=== PATIENT | female | born 1930 | race Asian ===

== ENCOUNTER 2016-10-17 09:37 | Inpatient (IN) | payer OTHER ==
[2016-10-17] VITALS (7 sets, daily range): BP systolic 116–133; BP diastolic 53–79
[~2016-10-17] VITALS: Ht 154.9 cm; Wt 57.2 kg
--- NOTE | 2016-10-17 09:39 | Emergency Room Report ---
History of Present Illness General Chief Complaint: Gastrointestinal Bleed Source: Patient, Family Member, EMS Present Illness HPI The patient started vomiting up dark material this morning. She also appeared pale at that time and weak. She's never done this before. She's had a normal bowel movement earlier today. It was not melanotic. She denies any abdominal complaints. She drank some herbal tea last night. She did not take any nonsteroidals. She is on aspirin. Paramedics found her blood sugar is elevated. She is on metformin and glipizide. Adjusting her medications for this recently. No fevers, ADLER, dysuria, rash, joint pain, dizziness, chest pain, dyspnea. Allergies: Coded Allergies: No Known Allergies (Unverified , 10/17/16) Patient History Past Medical History: see triage record Social History: Denies: alcohol use, drug use, smoking Social History Narrative with daughter Reviewed Nursing Documentation: PMH: Agreed, PSxH: Agreed Nursing Documentation-PMH Past Medical History: No History, Except For Hx Hypertension: Yes Hx Diabetes: Yes Review of Systems All Other Systems: negative except mentioned in HPI Physical Exam Vital Signs Date Time Temp Pulse Resp B/P Pulse Ox O2 Delivery O2 Flow Rate FiO2 10/17/16 09:22 97.5 90 14 81/37 96 Room Air Sp02 EP Interpretation: reviewed, normal General Appearance: well appearing, no apparent distress, GCS 15 Head: normocephalic Eyes: bilateral eye conjunctivae pale ENT: moist mucus membranes Neck: supple Respiratory: lungs clear, normal breath sounds Cardiovascular #1: regular rate, rhythm Cardiovascular #2: 2+ radial (R) Gastrointestinal: normal inspection, normal bowel sounds, non tender, no mass, non-distended Rectal: heme negative stool, other - swab from mouth is heme + Musculoskeletal: back normal, gait/station normal, normal range of motion Neurologic: alert - OX2, motor strength/tone normal, sensory intact, cerebellar normal, speech normal Psychiatric: mood/affect normal Skin: warm/dry, pallor Procedures Critical Care Time Critical Care Time Total time: 30 min bedside evaluation and treatment excludes procedures (EKG). Reason for critical care: hypotension, GI bleed, anemia, hyperglycemia and resuscitation Possible complications: hypotension, shock, arrhythmias, metabolic acidosis, end organ damage. Interventions: aggressive hydration, transfusion, repeated accucheck Course: Patient presented with GI bleed. Patient hypotensive which improved after initial fluid resuscitation. Emergent evaluation for GI bleed and other causes of hypotension and w/u of hypotension. Repeated evaluations and discussion of treatment with family and patient (also informed consent for transfusion). Hypotension and elevated lactic acid led to emergent transfusion. BP stabilized. Accucheck improved with fluids, no insulin needed at this time. Consideration of antibiotics - but held as no infectious source found. Consultations: PMD, family, nursing staff, EMS, blood bank, and GI care consultant Performed by: Dr. Martinez Tolerated well - but condition critical. Medical Decision Making Diagnostic Impression: Primary Impression: Gastrointestinal hemorrhage Qualified Codes: K92.0 - Hematemesis Additional Impressions: Hyperglycemia Elevated lactic acid level Hemorrhagic shock ER Course Patient with heme positive material that she vomited. She is hypotensive. Differential is gastritis, peptic ulcer disease, varices amongst others. Also blood sugars elevated. The patient needs to get IV hydration and rapid transfusion. Also labs will be sent including lactate and type and screen. The patient's blood pressures somewhat improved after fluids. A repeat Accu- Chek after boluses preclude glycemic control at the moment. Protonix begun. Discussed transfusions with patient and family. Tolerating blood without problem. Admit RASHAAD. Discussed with Dr. Calero. Requests Dr. Sanford. Discussed with both physicians. Improved but serious. Laboratory Tests Test 10/17/16 09:44 10/17/16 09:59 White Blood Count 11.0 K/UL (4.8-10.8) H Red Blood Count 2.76 M/UL (4.20-5.40) L Hemoglobin 8.9 G/DL (12.0-16.0) L Hematocrit 28.1 % (37.0-47.0) L Mean Corpuscular Volume 102 FL (80-99) H Mean Corpuscular Hemoglobin 32.2 PG (27.0-31.0) H Mean Corpuscular Hemoglobin Concent 31.6 G/DL (32.0-36.0) L Red Cell Distribution Width 12.1 % (11.6-14.8) Platelet Count 226 K/UL (150-450) Mean Platelet Volume 5.9 FL (6.5-10.1) L Neutrophils (%) (Auto) 68.2 % (45.0-75.0) Lymphocytes (%) (Auto) 25.8 % (20.0-45.0) Monocytes (%) (Auto) 4.5 % (1.0-10.0) Eosinophils (%) (Auto) 0.7 % (0.0-3.0) Basophils (%) (Auto) 0.8 % (0.0-2.0) Prothrombin Time 10.4 SEC (9.30-11.50) Prothrombin Time INR 1.0 (0.9-1.1) PTT 20 SEC (23-33) L Sodium Level 137 mEQ/L (135-145) Potassium Level 4.3 mEQ/L (3.4-4.9) Chloride Level 92 mEQ/L (98-107) L Carbon Dioxide Level 26 mEQ/L (20-30) Anion Gap 19 (5-15) H Blood Urea Nitrogen 36 mg/dL (7-23) H Creatinine 1.0 mg/dL (0.5-0.9) H Estimate Glomerular Filtration Rate mL/min (>60) Glucose Level 385 mg/dL (74-106) H Lactic Acid Level 5.90 mmol/L (0.66-2.22) H Calcium Level 8.8 mg/dL (8.6-10.2) Total Bilirubin 0.5 mg/dL (0.0-1.2) Aspartate Amino Transferase (AST) 20 U/L (5-40) Alanine Aminotransferase (ALT) 10 U/L (3-33) Alkaline Phosphatase 42 U/L (35-104) Troponin I < 0.30 ng/mL (<=0.30) Total Protein 5.4 g/dL (6.6-8.7) L Albumin 3.2 g/dL (3.5-5.2) L Globulin 2.2 g/dL Albumin/Globulin Ratio 1.4 (1.0-2.7) Lipase 22 U/L (< 60) Urine Color Yellow Urine Appearance Clear Urine pH 5 (4.5-8.0) Urine Specific [place] 1.015 (1.005-1.035) Urine Protein 2+ (NEGATIVE) H Urine Glucose (UA) 2+ (NEGATIVE) H Urine Ketones 1+ (NEGATIVE) H Urine Occult Blood Negative (NEGATIVE) Urine Nitrite Negative (NEGATIVE) Urine Bilirubin 2+ (NEGATIVE) H Urine Ictotest Negative Urine Urobilinogen Normal MG/DL (0.0-1.0) Urine Leukocyte Esterase 1+ (NEGATIVE) H Urine RBC 0-2 /HPF (0 - 2) Urine WBC 0-2 /HPF (0 - 2) Urine Squamous Epithelial Cells Occasional /LPF Urine Bacteria Occasional /HPF (NONE) EKG Diagnostic Results Rate: normal Rhythm: NSR ST Segments: no acute changes Rhythm Strip Diag. Results EP Interpretation: yes Rhythm: NSR, no PVC's, no ectopy Chest X-Ray Diagnostic Results EP Interpretation: Yes Findings: no consolidation, no effusion, no pneumothorax, no acute cardiopulmonary disease Number of Views: 1 Other X-Ray Diagnostic Results Other X-Ray Diagnostic Results : X-Ray Ordered: abd EP Interpretation: Yes Findings: other - NSBGP, no obstruction, no obvious masses Number of Views: 1 Last Vital Signs Date Time Temp Pulse Resp B/P Pulse Ox O2 Delivery O2 Flow Rate FiO2 10/17/16 09:22 97.5 90 14 81/37 96 Room Air Status: improved Disposition: ADMITTED INPATIENT Condition: Serious Scripts Pantoprazole* (PROTONIX*) 40 Mg Tablet. 40 MG ORAL DAILY, #30 TAB Prov: Roosevelt Calero MD 10/19/16 Mio Martinez M.D. Oct 17, 2016 09:39
[2016-10-17] MEDS ORDERED: Pantoprazole Inj IV ONE (09:45)
[2016-10-17 10:18] LABS: BASOPHILS % (AUTO) 0.8 % (0.0-2.0); EOSINOPHILS % (AUTO) 0.7 % (0.0-3.0); LYMPHOCYTES % (AUTO) 25.8 % (20.0-45.0); MEAN CORPUSCULAR HEMOGLOBIN 32.2 PG (27.0-31.0); MEAN CORPUSCULAR HGB CONC 31.6 G/DL (32.0-36.0); MEAN CORPUSCULAR VOLUME 102 FL (80-99); MEAN PLATELET VOLUME 5.9 FL (6.5-10.1); MONOCYTES % (AUTO) 4.5 % (1.0-10.0); NEUTROPHILS % (AUTO) 68.2 % (45.0-75.0); PLATELET COUNT 226 K/UL (150-450); RED BLOOD COUNT 2.76 M/UL (4.20-5.40); RED CELL DISTRIBUTION WIDTH 12.1 % (11.6-14.8)
[2016-10-17 10:20] LABS: PROTHROMBIN TIME 10.4 SEC (9.30-11.50)
[2016-10-17 10:21] LABS: APPEARANCE,URINE CLEAR; KETONES,URINE 1+ (NEGATIVE); LEUKOCYTE ESTERASE ,URINE 1+ (NEGATIVE); NITRITE,URINE NEGATIVE (NEGATIVE); PH,URINE 5 (4.5-8.0); PROTEIN,URINE 2+ (NEGATIVE); UROBILINOGEN,URINE NORMAL MG/DL (0.0-1.0)
[2016-10-17 10:27] LABS: ALANINE AMINOTRANSFERASE 10 U/L (3-33); ALBUMIN/GLOBULIN RATIO 1.4 (1.0-2.7); ANION GAP 19 (5-15); ASPARTATE AMINO TRANSFERASE 20 U/L (5-40); CALCIUM 8.8 mg/dL (8.6-10.2); CARBON DIOXIDE 26 mEQ/L (20-30); CHLORIDE 92 mEQ/L (98-107); HEMOLYSIS 31; LIPASE 22 U/L (< 60); POTASSIUM 4.3 mEQ/L (3.4-4.9); SODIUM 137 mEQ/L (135-145); TOTAL PROTEIN 5.4 g/dL (6.6-8.7); TROPONIN I < 0.30 ng/mL (<=0.30)
[2016-10-17 10:30] LABS: REFLEX LACTIC ACID YES OR NO YES
[2016-10-17 10:32] LABS: BACTERIA,URINE OCCASIONAL /HPF; ICTOTEST NEGATIVE; RBC,URINE 0-2 /HPF (0 - 2); SQUAMOUS EPITHELIAL CELL,UR OCCASIONAL /LPF (NONE/OCC); WBC,URINE 0-2 /HPF (0 - 2)
[2016-10-17] MEDS ORDERED: METFORMIN HCL1000 M1 ORAL (10:41)
[2016-10-17] MEDS ORDERED: ATORVASTATIN CA40 MG ORAL (10:41)
[2016-10-17] MEDS ORDERED: BENAZEPRIL HCL10 MG ORAL (10:41)
[2016-10-17] MEDS ORDERED: GABAPENTIN100 MG ORAL (10:41)
[2016-10-17] MEDS ORDERED: HYDROCHLOROTHIA25 MG ORAL (10:41)
[2016-10-17] MEDS ORDERED: NORVASC10 MG ORAL (10:41)
[2016-10-17] MEDS ORDERED: GLIPIZIDE5 MG ORAL (10:41)
[2016-10-17] MEDS ORDERED: ASPIR 8181 MG ORAL (10:41)
--- NOTE | 2016-10-17 13:49 | GI Initial Consult Note ---
PattAnya Ivy N.P. 10/17/16 1349: History of Present Illness General Date patient seen: Oct 17, 2016 Reason for Hospitalization: Gastrointestinal Bleed Referring physician: ADDIE GODDARD Reason for Consultation: GI BLEED Present Illness HPI The patient started vomiting up material this morning. She also appeared pale at that time and weak. She never done this before. She's had a normal bowel movement earlier this today it was not melanotic. She denies any abdominal complaints. She drank some herbal tea last night. She did not take any nonsteroidals. She is on aspirin. Paramedics found her blood sugar is elevated. She is on metformin and glipizide. Adjusting her medications for this. GI CONSULT: HPI as noted above. GI consulted for UGIB with coffee ground emesis. Pt seen on floor with daughter at bedside, alert NAD with no active s/ sx of hematemesis or coffee grounds at this time. No general GI complaints noted at this time. Pt p/w with anemia Hgb of 8.9 and hypoalbuminemia. Unknown history of any endoscopic procedures. Home Meds Reported Medications Aspirin* (ASPIR 81*) 81 Mg Tablet.dr, 81 MG ORAL DAILY, TAB 10/17/16 Gabapentin* (GABAPENTIN*) 100 Mg Capsule, 100 MG ORAL PRN, CAP 10/17/16 Benazepril Hcl* (BENAZEPRIL HCL*) 10 Mg Tablet, 10 MG ORAL DAILY, TAB 10/17/16 Glipizide* (GLIPIZIDE*) 5 Mg Tablet, 5 MG ORAL BID, TAB 10/17/16 Atorvastatin Calcium* (ATORVASTATIN CALCIUM*) 40 Mg Tablet, 40 MG ORAL BEDTIME, TAB 10/17/16 Hydrochlorothiazide* (HYDROCHLOROTHIAZIDE*) 25 Mg Tablet, 25 MG ORAL DAILY, TAB 10/17/16 Metformin Hcl* (METFORMIN HCL*) 1,000 Mg Tablet, 1000 MG ORAL BID, TAB 10/17/16 Amlodipine Besylate (Norvasc) 10 Mg Tablet, 10 MG ORAL DAILY, TAB 10/17/16 Med list reviewed/reconciled: Yes Allergies: Coded Allergies: No Known Allergies (Unverified , 10/17/16) Patient History Limited by: medical condition History Provided By: Family Member, Medical Record H Narrative Past Medical History: see triage record Social History: Denies: alcohol use, drug use, smoking Social History Narrative with daughter Reviewed Nursing Documentation: PMH: Agreed, PSxH: Agreed Nursing Documentation-PMH Past Medical History: No History, Except For Hx Hypertension: Yes Hx Diabetes: Yes Pertinent Family History: HTN Social History: Denies: alcohol use, drug use, other, smoking Review of Systems All Other Systems: negative except mentioned in HPI Physical Exam Vital Signs Date Time Temp Pulse Resp B/P Pulse Ox O2 Delivery O2 Flow Rate FiO2 10/17/16 09:22 97.5 90 14 81/37 96 Room Air Sp02 EP Interpretation: reviewed Labs Laboratory Tests Test 10/17/16 09:44 10/17/16 09:59 White Blood Count 11.0 K/UL (4.8-10.8) H Red Blood Count 2.76 M/UL (4.20-5.40) L Hemoglobin 8.9 G/DL (12.0-16.0) L Hematocrit 28.1 % (37.0-47.0) L Mean Corpuscular Volume 102 FL (80-99) H Mean Corpuscular Hemoglobin 32.2 PG (27.0-31.0) H Mean Corpuscular Hemoglobin Concent 31.6 G/DL (32.0-36.0) L Red Cell Distribution Width 12.1 % (11.6-14.8) Platelet Count 226 K/UL (150-450) Mean Platelet Volume 5.9 FL (6.5-10.1) L Neutrophils (%) (Auto) 68.2 % (45.0-75.0) Lymphocytes (%) (Auto) 25.8 % (20.0-45.0) Monocytes (%) (Auto) 4.5 % (1.0-10.0) Eosinophils (%) (Auto) 0.7 % (0.0-3.0) Basophils (%) (Auto) 0.8 % (0.0-2.0) Prothrombin Time 10.4 SEC (9.30-11.50) Prothromb Time International Ratio 1.0 (0.9-1.1) Activated Partial Thromboplast Time 20 SEC (23-33) L Sodium Level 137 mEQ/L (135-145) Potassium Level 4.3 mEQ/L (3.4-4.9) Chloride Level 92 mEQ/L (98-107) L Carbon Dioxide Level 26 mEQ/L (20-30) Anion Gap 19 (5-15) H Blood Urea Nitrogen 36 mg/dL (7-23) H Creatinine 1.0 mg/dL (0.5-0.9) H Estimat Glomerular Filtration Rate mL/min (>60) Glucose Level 385 mg/dL (74-106) H Lactic Acid Level 5.90 mmol/L (0.66-2.22) H Calcium Level 8.8 mg/dL (8.6-10.2) Total Bilirubin 0.5 mg/dL (0.0-1.2) Aspartate Amino Transf (AST/SGOT) 20 U/L (5-40) Alanine Aminotransferase (ALT/SGPT) 10 U/L (3-33) Alkaline Phosphatase 42 U/L (35-104) Troponin I < 0.30 ng/mL (<=0.30) Total Protein 5.4 g/dL (6.6-8.7) L Albumin 3.2 g/dL (3.5-5.2) L Globulin 2.2 g/dL Albumin/Globulin Ratio 1.4 (1.0-2.7) Lipase 22 U/L (< 60) Urine Color Yellow Urine Appearance Clear Urine pH 5 (4.5-8.0) Urine Specific [place] 1.015 (1.005-1.035) Urine Protein 2+ (NEGATIVE) H Urine Glucose (UA) 2+ (NEGATIVE) H Urine Ketones 1+ (NEGATIVE) H Urine Occult Blood Negative (NEGATIVE) Urine Nitrite Negative (NEGATIVE) Urine Bilirubin 2+ (NEGATIVE) H Urine Ictotest Negative Urine Urobilinogen Normal MG/DL (0.0-1.0) Urine Leukocyte Esterase 1+ (NEGATIVE) H Urine RBC 0-2 /HPF (0 - 2) Urine WBC 0-2 /HPF (0 - 2) Urine Squamous Epithelial Cells Occasional /LPF Urine Bacteria Occasional /HPF (NONE) General Appearance: no apparent distress, alert Head: normocephalic EENT: normal ENT inspection Neck: supple Respiratory: normal breath sounds, no respiratory distress Cardiovascular: normal rate, other - hypotension resolved Gastrointestinal: normal inspection, non tender, soft Rectal: deferred Genitourinary: no CVA tenderness Neurologic: alert Psychiatric: normal inspection Skin: no rash, pallor - generalized Lymphatic: normal inspection, no adenopathy Current Medications Current Medications Medications (Trade) Dose Ordered Sig/Nadine Route PRN Reason Start Time Stop Time Status Last Admin Dose Admin Ondansetron HCl 4 mg 4 mg Q6H PRN IVP Nausea & Vomiting 10/17/16 13:45 11/16/16 13:44 UNV Pantoprazole (Protonix) 40 mg EVERY 12 HOURS IVP 10/17/16 21:00 11/16/16 20:59 UNV Sodium Chloride (Sodium Chloride 1000ml bag) 1,000 ml @ 10 mls/hr Q24H ONCE IV 10/17/16 10:31 10/18/16 10:30 10/17/16 10:31 Sodium Chloride (Sodium Chloride 1000ml bag) 1,000 ml @ 75 mls/hr [id number] IV 10/18/16 09:45 11/17/16 09:44 UNV GI: Plan Problems: (1) Anemia (2) Coffee ground emesis (3) Hypoalbuminemia (4) HTN (hypertension) (5) Diabetes mellitus (6) Gastrointestinal hemorrhage Plan pt scheduled for EGD tomorrow. - NPO + IVFs now PPI BID fu KUB decreased IVFs rate, hypotension resolved. anemia work up OB stool uncollected fu labs Discussed with Dr. Vasquez. Thank you for referring this patient, we will follow. NORM VASQUEZ 10/18/16 1217: History of Present Illness General Reason for Hospitalization: Gastrointestinal Bleed Present Illness Home Meds Reported Medications Aspirin* (ASPIR 81*) 81 Mg Tablet., 81 MG ORAL DAILY, TAB 10/17/16 Gabapentin* (GABAPENTIN*) 100 Mg Capsule, 100 MG ORAL PRN, CAP 10/17/16 Benazepril Hcl* (BENAZEPRIL HCL*) 10 Mg Tablet, 10 MG ORAL DAILY, TAB 10/17/16 Glipizide* (GLIPIZIDE*) 5 Mg Tablet, 5 MG ORAL BID, TAB 10/17/16 Atorvastatin Calcium* (ATORVASTATIN CALCIUM*) 40 Mg Tablet, 40 MG ORAL BEDTIME, TAB 10/17/16 Hydrochlorothiazide* (HYDROCHLOROTHIAZIDE*) 25 Mg Tablet, 25 MG ORAL DAILY, TAB 10/17/16 Metformin Hcl* (METFORMIN HCL*) 1,000 Mg Tablet, 1000 MG ORAL BID, TAB 10/17/16 Amlodipine Besylate (Norvasc) 10 Mg Tablet, 10 MG ORAL DAILY, TAB 10/17/16 Allergies: Coded Allergies: No Known Allergies (Unverified , 10/17/16) GI: Plan Plan The patient was seen and examined at bedside and all new and available data was reviewed in the patients chart. I agree with the above findings, impression and plan. (Patient seen earlier today. Signature stamp does not reflect patient encounter time.). -Imani Mehta MDh Biju N.PAnanya Oct 17, 2016 13:49 NORM VASQUEZ Oct 18, 2016 12:17
[2016-10-17] MEDS: NovoLOG Insulin Flexpen SUBQ SCH ×2 (17:51→21:00)
[2016-10-17] MEDS: Pantoprazole Inj IVP SCH (21:28)
[2016-10-18] VITALS (10 sets, daily range): BP systolic 113–152; BP diastolic 51–73
[2016-10-18 05:38] LABS: PROTHROMBIN TIME 10.3 SEC (9.30-11.50)
[2016-10-18 05:49] LABS: ALANINE AMINOTRANSFERASE 9 U/L (3-33); ALBUMIN/GLOBULIN RATIO 1.4 (1.0-2.7); ANION GAP 8 (5-15); ASPARTATE AMINO TRANSFERASE 17 U/L (5-40); BASOPHILS % (AUTO) 0.8 % (0.0-2.0); CALCIUM 8.4 mg/dL (8.6-10.2); CARBON DIOXIDE 28 mEQ/L (20-30); CHLORIDE 108 mEQ/L (98-107); CREATININE 0.8 mg/dL (0.5-0.9); EOSINOPHILS % (AUTO) 1.3 % (0.0-3.0); LYMPHOCYTES % (AUTO) 31.4 % (20.0-45.0); MAGNESIUM 1.6 mg/dL (1.7-2.5); MEAN CORPUSCULAR VOLUME 97 FL (80-99); MEAN PLATELET VOLUME 6.1 FL (6.5-10.1); MONOCYTES % (AUTO) 6.9 % (1.0-10.0); NEUTROPHILS % (AUTO) 59.6 % (45.0-75.0); PHOSPHORUS 2.3 mg/dL (2.5-4.8); PLATELET COUNT 163 K/UL (150-450); POTASSIUM 3.9 mEQ/L (3.4-4.9); RED BLOOD COUNT 2.62 M/UL (4.20-5.40); RED CELL DISTRIBUTION WIDTH 13.3 % (11.6-14.8); SODIUM 144 mEQ/L (135-145); TOTAL PROTEIN 5.2 g/dL (6.6-8.7); WHITE BLOOD COUNT 7.8 K/UL (4.8-10.8)
[2016-10-18 05:53] LABS: HEMOLYSIS 11; IRON 237 ug/dL (37-145); TOTAL IRON BINDING CAPACITY 253 ug/dL (250-400)
[2016-10-18] MEDS: NovoLOG Insulin Flexpen SUBQ SCH ×4 (06:30→21:20)
[2016-10-18] MEDS: Pantoprazole Inj IVP SCH ×2 (08:48→21:13)
--- NOTE | 2016-10-18 09:24 | Pre-Procedure Note/Attestation ---
Pre-Procedure Note/Attestation Complete Prior to Procedure Planned Procedure: not applicable Procedure Narrative: egd Indications for Procedure Pre-Operative Diagnosis: gib Attestation I attest that I discussed the nature of the procedure; its benefits; risks and complications; and alternatives (and the risks and benefits of such alternatives ), prior to the procedure, with the patient (or the patient's legal cash posting representative). I attest that, if there was a reasonable possibility of needing a blood transfusion, the patient (or the patient's legal cash posting representative) was given the [facility] standardized written summary, pursuant to the [employer] [employer] Blood Safety Act ([place] Health and Safety Code # 1645, as amended). I attest that I re-evaluated the patient just prior to the surgery and that there has been no change in the patient's H&P, except as documented below: NORM VASQUEZ Oct 18, 2016 09:24
[2016-10-18] MEDS ORDERED: NS 550ML IV ONE (09:25)
--- NOTE | 2016-10-18 09:44 | Endoscopy Procedure Note ---
Endoscopy Procedure Note Indication for Procedure: gib Procedures Performed: EGD Operative Findings/Diagnosis: gu Specimen: yes Pt Tolerated Procedure Well: Yes Estimated Blood Loss: none Anesthesiologist: christy Anesthesia: MAC Implant(s) used?: No 50 yrs or older w/o bx or poly: Not Applicable 10yrs. F/U not recommended: Not Applicable NORM VASQUEZ Oct 18, 2016 09:44
--- NOTE | 2016-10-18 09:50 | Anethesia Preoperative Eval ---
Anesthesia Pre-op PMH/ROS General Date of Evaluation: Oct 18, 2016 Time of Evaluation: 09:30 Anesthesiologist: christian ASA Score: ASA 3 Mallampati Score Class I : Soft palate, uvula, fauces, pillars visible Class II: Soft palate, uvula, fauces visible Class III: Soft palate, base of uvula visible Class IV: Only hard plate visible Mallampati Classification: Class III Surgeon: luz maria Diagnosis: anemia Surgical Procedure: egd Anesthesia History: none Family History: no anesthesia problems Allergies: Coded Allergies: No Known Allergies (Unverified , 10/17/16) Medications: see eMAR Past Medical History Cardiovascular: Reports: HTN Pulmonary: Denies: COPD, HUNG, asthma, other Gastrointestinal/Genitourinary: Reports: GERD Neurologic/Psychiatric: Denies: CVA, TIA, dementia, depression/anxiety, other Endocrine: Reports: DM HEENT: Denies: [place] (L), [place] (R), cataract (L), cataract (R), glaucoma, other Hematology/Immune: Reports: anemia Musculoskeletal/Integumentary: Denies: DDD, DJD, OA, RA, edema, other Other: obesity PSxH Narrative: none Anesthesia Pre-op Phys. Exam Physician Exam Last Vital Signs Date Time Temp Pulse Resp B/P Pulse Ox O2 Delivery O2 Flow Rate FiO2 10/18/16 08:00 96.3 75 20 113/51 94 Room Air Constitutional: NAD Neurologic: CN 2-12 intact Cardiovascular: RRR Respiratory: CTA Gastrointestinal: S/NT/ND Airway Exam Mallampati Score: Class II MO: full Neck: thick TMD: 1f ROM: full Dentures: no lower, no upper Anesthesia Pre-op A/P Labs Hematology Test 10/18/16 03:45 White Blood Count 7.8 K/UL (4.8-10.8) Red Blood Count 2.62 M/UL (4.20-5.40) L Hemoglobin 8.4 G/DL (12.0-16.0) L Hematocrit 25.5 % (37.0-47.0) L Mean Corpuscular Volume 97 FL (80-99) Mean Corpuscular Hemoglobin 32.0 PG (27.0-31.0) H Mean Corpuscular Hemoglobin Concent 33.0 G/DL (32.0-36.0) Red Cell Distribution Width 13.3 % (11.6-14.8) Platelet Count 163 K/UL (150-450) Mean Platelet Volume 6.1 FL (6.5-10.1) L Neutrophils (%) (Auto) 59.6 % (45.0-75.0) Lymphocytes (%) (Auto) 31.4 % (20.0-45.0) Monocytes (%) (Auto) 6.9 % (1.0-10.0) Eosinophils (%) (Auto) 1.3 % (0.0-3.0) Basophils (%) (Auto) 0.8 % (0.0-2.0) Coagulation Test 10/18/16 03:45 Prothrombin Time 10.3 SEC (9.30-11.50) Prothromb Time International Ratio 1.0 (0.9-1.1) Activated Partial Thromboplast Time 24 SEC (23-33) Chemistry Test 10/17/16 14:15 10/18/16 03:45 Lactic Acid Level 2.10 mmol/L (0.66-2.22) Sodium Level 144 mEQ/L (135-145) Potassium Level 3.9 mEQ/L (3.4-4.9) Chloride Level 108 mEQ/L (98-107) H Carbon Dioxide Level 28 mEQ/L (20-30) Anion Gap 8 (5-15) Blood Urea Nitrogen 31 mg/dL (7-23) H Creatinine 0.8 mg/dL (0.5-0.9) Estimat Glomerular Filtration Rate mL/min (>60) Glucose Level 104 mg/dL (74-106) # Hemoglobin A1c 6.9 % (< 6.0) H Calcium Level 8.4 mg/dL (8.6-10.2) L Phosphorus Level 2.3 mg/dL (2.5-4.8) L Magnesium Level 1.6 mg/dL (1.7-2.5) L Iron Level 237 ug/dL (37-145) H Total Iron Binding Capacity 253 ug/dL (250-400) Percent Iron Saturation 94 % (15-50) H Unsaturated Iron Binding < 16 ug/dL (112-346) L Total Bilirubin 0.7 mg/dL (0.0-1.2) Aspartate Amino Transf (AST/SGOT) 17 U/L (5-40) Alanine Aminotransferase (ALT/SGPT) 9 U/L (3-33) Alkaline Phosphatase 37 U/L (35-104) Total Protein 5.2 g/dL (6.6-8.7) L Albumin 3.1 g/dL (3.5-5.2) L Globulin 2.1 g/dL Albumin/Globulin Ratio 1.4 (1.0-2.7) Vitamin B12 Level 109 pg/mL (211-946) L Studies Pre-op Studies: EKG - sr Risk Assessment & Plan Plan: mac Status Change Before Surgery: No Pre-Antibiotics Drug: none CHRISSY SEE CRNA Oct 18, 2016 09:50
[2016-10-18] MEDS ORDERED: Propofol 10mg/ml 20ml IV ONE (10:00)
[2016-10-18] MEDS ORDERED: Lidocaine 1% MPF 10mg/ml 5ml ONE (10:00)
--- NOTE | 2016-10-18 10:02 | Immediate Post-Op Evaluation ---
Immediate Post-Op Evalulation Immediate Post-Op Evalulation Procedure: egd Date of Evaluation: Oct 18, 2016 Time of Evaluation: 10:01 IV Fluids: 200 Blood Pressure Systolic: 121 Blood Pressure Diastolic: 65 Pulse Rate: 75 Respiratory Rate: 14 O2 Sat by Pulse Oximetry: 100 Temperature (Fahrenheit): 97.4 Patient Status: awake, reacts, patent Hydration Status: adequate Drug: none CHRISSY SEE CRNA Oct 18, 2016 10:02
--- NOTE | 2016-10-18 10:17 | 48 Hour Post Anesthesia Eval ---
Post Anesthesia Evaluation Procedure: egd Date of Evaluation: Oct 18, 2016 Time of Evaluation: 10:16 Blood Pressure Systolic: 122 0: 65 Pulse Rate: 70 O2 Sat by Pulse Oximetry: 99 Airway: patent Nausea: No Vomiting: No Hydration Status: adequate Cardiopulmonary Status: normal Mental Status/LOC: patient returned to baseline Post-Anesthesia Complications: none Follow-up care needed: N/A CHRISSY SEE CRNA Oct 18, 2016 10:17
--- NOTE | 2016-10-18 12:08 | History and Physical Report ---
DATE OF ADMISSION: 10/17/2016 HISTORY OF PRESENT ILLNESS: This is an 86-year-old female, who was brought to the hospital with complaints of hematemesis. She start having hematemesis yesterday morning. She states that she had normal bowel movements, which were not black in color or had any blood. There were no abdominal complaints. The patient takes aspirin at home. She is also a diabetic on metformin and glipizide. The patient was seen overnight by Gastroenterology and this morning is scheduled for upper GI endoscopy. PAST MEDICAL HISTORY: Hypertension, hyperlipidemia, and diabetes mellitus. PAST SURGICAL HISTORY: None reported. MEDICATIONS: Home medications, aspirin, Neurontin, benazepril, glipizide, Lipitor, HCTZ, and amlodipine. ALLERGIES: None. REVIEW OF SYSTEMS: Denies any headaches. There is no melena or hematochezia. No abdominal pain. No vomiting as discussed above. PHYSICAL EXAMINATION: GENERAL: Reveals an 86-year-old female. VITAL SIGNS: Blood pressure is 130/70, heart rate 84, . She is afebrile. HEENT: Unremarkable. CHEST: Shows clear breath sounds bilaterally. HEART: Normal heart sounds. ABDOMEN: Soft. EXTREMITIES: There is no edema. NEUROLOGIC: Nonfocal. LABORATORY DATA: Lab testing shows hemoglobin 8.4 this morning. Remainder of the CBC is normal. Chemistries are notable for phosphorus 2.3, magnesium 1.6. Iron 237. Hemoglobin A1c is 6.9. Creatinine is normal. Coags are normal. Urinalysis negative. Imaging studies none. IMPRESSION: 1. Upper gastrointestinal bleed. 2. Hypertension. 3. Diabetes mellitus. 4. Hyperlipidemia. 5. Anemia. DISCUSSION: Continue NPO with IV fluids. Proton pump inhibitors. Await results of her endoscopy. 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 Roosevelt Calero M.D. DR: Karina JOB#: [id number] CC:
--- NOTE | 2016-10-18 14:08 | Procedure Note ---
DATE OF PROCEDURE: 10/18/2016 PROCEDURE PERFORMED: Upper endoscopy with biopsy. ANESTHESIA: Per Nanci LUTHER. INSTRUMENT: Olympus adult flexible upper endoscope. INDICATION: Upper gastrointestinal bleeding. DESCRIPTION OF PROCEDURE: The procedure, risks, benefits, and possible consequences, including hemorrhage, aspiration, perforation and infection, and alternative treatments, were explained to the patient/legal guardian by Dr. Buddy Sanford and the patient/legal guardian understood and accepted these risks. After informed consent was obtained and the patient was adequately sedated, the Olympus upper endoscope was advanced from the mouth into the duodenum and retroflexion was performed in the stomach. The patient has evidence of shallow ulcer in the antrum of the stomach in the pre-pyloric region at about 9 o'clock position. There was one ulcer lining of the stomach getting ulcerated, so basically one area of spot of the ulcer with some ulcerative inflammation. No active bleeding at this time. No visible vessel. No adherent clot. Biopsy from antrum and body was obtained to rule out H. pylori infection. The rest of the exam was within normal limits. SUMMARY OF FINDINGS: Gastric ulcers. See above for details. RECOMMENDATIONS: Follow up biopsy results. Treat for H. pylori if it is positive. Continue on PPI twice a day. Advanced diet. Possibly discharge tomorrow if the patient is stable. Buddy Sanford M.D. DR: NORBERTO JOB#: [id number] CC: FRANCESCA
--- NOTE | 2016-10-18 15:09 | Cardiology Report ---
APPROVED REPORT EKG Measurement Heart [id number] NM [id number] Normal sinus rhythm Nonspecific ST abnormality Prolonged QT Abnormal ECG
[2016-10-18] MEDS ORDERED: Tubing IV Secondary IV ONE (17:17)
[2016-10-19] VITALS: BP 149/66
[2016-10-19 04:00] VITALS: BP 143/66
[2016-10-19 05:36] LABS: BASOPHILS % (AUTO) 1.1 % (0.0-2.0); EOSINOPHILS % (AUTO) 2.2 % (0.0-3.0); LYMPHOCYTES % (AUTO) 30.5 % (20.0-45.0); MEAN CORPUSCULAR HEMOGLOBIN 33.2 PG (27.0-31.0); MEAN CORPUSCULAR HGB CONC 34.3 G/DL (32.0-36.0); MEAN CORPUSCULAR VOLUME 97 FL (80-99); MEAN PLATELET VOLUME 5.5 FL (6.5-10.1); MONOCYTES % (AUTO) 5.7 % (1.0-10.0); NEUTROPHILS % (AUTO) 60.5 % (45.0-75.0); PLATELET COUNT 144 K/UL (150-450); RED BLOOD COUNT 2.64 M/UL (4.20-5.40); RED CELL DISTRIBUTION WIDTH 12.7 % (11.6-14.8); WHITE BLOOD COUNT 6.4 K/UL (4.8-10.8)
[2016-10-19 05:51] LABS: ANION GAP 11 (5-15); CALCIUM 8.4 mg/dL (8.6-10.2); CARBON DIOXIDE 25 mEQ/L (20-30); CHLORIDE 106 mEQ/L (98-107); CREATININE 0.6 mg/dL (0.5-0.9); HEMOLYSIS 8; POTASSIUM 3.1 mEQ/L (3.4-4.9); SODIUM 142 mEQ/L (135-145)
[2016-10-19] MEDS: NovoLOG Insulin Flexpen SUBQ SCH (06:22)
[2016-10-19 08:00] VITALS: BP 147/72
[2016-10-19] MEDS: Pantoprazole Inj IVP SCH (08:48)
--- NOTE | 2016-10-19 09:33 | Pulmonology Progress Note ---
Assessment/Plan Assessment/Plan IMPRESSION: 1. Upper gastrointestinal bleed. Gastric ulcer on EGD 2. Hypertension. 3. Diabetes mellitus. 4. Hyperlipidemia. 5. Anemia. DISCUSSION: Start PO diet; dc IV fluids. Proton pump inhibitors. DC home today Replace K Subjective Interval Events: Feeling better; starting PO diet Constitutional: Reports: no symptoms HEENT: Repors: no symptoms Respiratory: Reports: no symptoms Cardiovascular: Reports: no symptoms Gastrointestinal/Abdominal: Reports: no symptoms Genitourinary: Reports: no symptoms Allergies: Coded Allergies: No Known Allergies (Unverified , 10/17/16) Objective Last 24 Hour Vital Signs Date Time Temp Pulse Resp B/P Pulse Ox O2 Delivery O2 Flow Rate FiO2 10/19/16 08:00 88 10/19/16 08:00 97.7 86 20 147/72 95 Room Air 10/19/16 04:00 79 10/19/16 04:00 97.8 80 18 143/66 95 Room Air 10/19/16 00:00 97.0 75 18 149/66 94 Bi-pap 10/19/16 00:00 80 10/18/16 20:27 80 10/18/16 19:55 98.2 77 21 152/73 93 Room Air 10/18/16 16:00 73 10/18/16 16:00 99.4 74 22 137/62 94 Room Air 10/18/16 12:00 97.9 79 21 124/57 94 Room Air 10/18/16 10:20 98.0 63 15 138/55 94 Room Air 10/18/16 10:17 70 99 10/18/16 10:05 68 20 139/56 94 Nasal Cannula 2.0 10/18/16 10:02 75 14 100 10/18/16 10:00 72 23 145/66 94 Simple Mask 6.0 10/18/16 09:55 97.9 66 22 122/52 100 Simple Mask 6.0 Intake and Output 10/18/16 10/19/16 19:00 07:00 Intake Total 1020 ml 1300 ml Output Total 800 ml 2550 ml Balance 220 ml -1250 ml Intake Oral 120 ml 625 ml IV Total 900 ml 675 ml Output Urine Total 800 ml 2550 ml # Voids 1 General Appearance: WD/WN HEENT: normocephalic Respiratory/Chest: chest wall non-tender, lungs clear Cardiovascular: normal peripheral pulses, normal rate Laboratory Tests 10/19/16 04:15: White Blood Count 6.4, Red Blood Count 2.64L, Hemoglobin 8.8L, Hematocrit 25.5L , Mean Corpuscular Volume 97, Mean Corpuscular Hemoglobin 33.2H, Mean Corpuscular Hemoglobin Concent 34.3, Red Cell Distribution Width 12.7, Platelet Count 144L, Mean Platelet Volume 5.5L, Neutrophils (%) (Auto) 60.5, Lymphocytes (%) (Auto) 30.5, Monocytes (%) (Auto) 5.7, Eosinophils (%) (Auto) 2.2, Basophils (%) (Auto) 1.1, Sodium Level 142, Potassium Level 3.1L, Chloride Level 106, Carbon Dioxide Level 25, Anion Gap 11, Blood Urea Nitrogen 11, Creatinine 0.6, Estimat Glomerular Filtration Rate , Glucose Level 99, Calcium Level 8.4L, Helicobacter pylori IgG Antibody [Pending] Current Medications Medications (Trade) Dose Ordered Sig/Nadine Route PRN Reason Start Time Stop Time Status Last Admin Dose Admin Dextrose (Dextrose 50%) STAT PRN IV Hypoglycemia 10/17/16 14:15 11/16/16 14:14 Insulin Aspart (NovoLOG) BEFORE MEALS AND HS SUBQ 10/17/16 16:30 11/16/16 16:29 10/18/16 21:20 Ondansetron HCl 4 mg 4 mg Q6H PRN IVP Nausea & Vomiting 10/17/16 13:45 11/16/16 13:44 Pantoprazole (Protonix) 40 mg EVERY 12 HOURS IVP 10/17/16 21:00 11/16/16 20:59 10/19/16 08:48 Sodium Chloride (Sodium Chloride 1000ml bag) 1,000 ml @ 75 mls/hr [id number] IV 10/17/16 14:00 11/16/16 13:59 10/19/16 07:00 Roosevelt Calero MD Oct 19, 2016 09:33
[2016-10-19] MEDS ORDERED: PROTONIX40 MG ORAL (09:39)
[2016-10-19] MEDS ORDERED: KCl 10% 20 mEq/15ml liquid NG ONE (09:45)
--- NOTE | 2016-10-19 11:16 | GI Progress Note ---
Assessment/Plan Problems: (1) Gastrointestinal hemorrhage ICD Codes: K92.2 - Gastrointestinal hemorrhage, unspecified SNOMED: 15436965 Qualifiers: Qualified Codes: K92.0 - Hematemesis (2) Hypoalbuminemia ICD Codes: E88.09 - Other disorders of plasma-protein metabolism, not elsewhere classified SNOMED: 200947459 (3) Anemia ICD Codes: D64.9 - Anemia, unspecified SNOMED: 582456893 (4) Diabetes mellitus ICD Codes: E11.9 - Type 2 diabetes mellitus without complications SNOMED: 36203273 (5) Elevated lactic acid level ICD Codes: E87.2 - Acidosis SNOMED: 4009873 Status: stable Status Narrative Discussed with Dr. Sanford. Assessment/Plan SUMMARY OF FINDINGS: Gastric ulcers. See above for details. ok for DC per GI standpoint monitor H&H, transfuse prn PPI BID adv diet fu biopsy for HP outpatient follow up Subjective Gastrointestinal/Abdominal: Reports: no symptoms Objective Last 24 Hour Vital Signs Date Time Temp Pulse Resp B/P Pulse Ox O2 Delivery O2 Flow Rate FiO2 10/19/16 08:00 88 10/19/16 08:00 97.7 86 20 147/72 95 Room Air 10/19/16 04:00 79 10/19/16 04:00 97.8 80 18 143/66 95 Room Air 10/19/16 00:00 97.0 75 18 149/66 94 Bi-pap 10/19/16 00:00 80 10/18/16 20:27 80 10/18/16 19:55 98.2 77 21 152/73 93 Room Air 10/18/16 16:00 73 10/18/16 16:00 99.4 74 22 137/62 94 Room Air 10/18/16 12:00 97.9 79 21 124/57 94 Room Air Intake and Output 10/18/16 10/19/16 19:00 07:00 Intake Total 1020 ml 1300 ml Output Total 800 ml 2550 ml Balance 220 ml -1250 ml Intake Oral 120 ml 625 ml IV Total 900 ml 675 ml Output Urine Total 800 ml 2550 ml # Voids 1 Laboratory Tests Test 10/19/16 04:15 White Blood Count 6.4 K/UL (4.8-10.8) Red Blood Count 2.64 M/UL (4.20-5.40) L Hemoglobin 8.8 G/DL (12.0-16.0) L Hematocrit 25.5 % (37.0-47.0) L Mean Corpuscular Volume 97 FL (80-99) Mean Corpuscular Hemoglobin 33.2 PG (27.0-31.0) H Mean Corpuscular Hemoglobin Concent 34.3 G/DL (32.0-36.0) Red Cell Distribution Width 12.7 % (11.6-14.8) Platelet Count 144 K/UL (150-450) L Mean Platelet Volume 5.5 FL (6.5-10.1) L Neutrophils (%) (Auto) 60.5 % (45.0-75.0) Lymphocytes (%) (Auto) 30.5 % (20.0-45.0) Monocytes (%) (Auto) 5.7 % (1.0-10.0) Eosinophils (%) (Auto) 2.2 % (0.0-3.0) Basophils (%) (Auto) 1.1 % (0.0-2.0) Sodium Level 142 mEQ/L (135-145) Potassium Level 3.1 mEQ/L (3.4-4.9) L Chloride Level 106 mEQ/L (98-107) Carbon Dioxide Level 25 mEQ/L (20-30) Anion Gap 11 (5-15) Blood Urea Nitrogen 11 mg/dL (7-23) Creatinine 0.6 mg/dL (0.5-0.9) Estimat Glomerular Filtration Rate mL/min (>60) Glucose Level 99 mg/dL (74-106) Calcium Level 8.4 mg/dL (8.6-10.2) L Helicobacter pylori IgG Antibody Pending Height (Feet): 5 Height (Inches): 1.00 Weight (Pounds): 126 General Appearance: no apparent distress, alert Cardiovascular: normal rate Respiratory/Chest: normal breath sounds, no respiratory distress Abdominal Exam: normal bowel sounds, non tender, soft Anya Beltre N.P. Oct 19, 2016 11:16
--- NOTE | 2016-10-20 15:15 | Discharge Summary ---
Discharge Summary Hospital Course Date of Admission Oct 17, 2016 at 10:07 Date of Discharge Oct 19, 2016 at 11:20 Admitting Diagnosis GI BLEED RAJ Everett is a 86 year old female who was admitted on Oct 17, 2016 at 10: 07 for Gi Bleed Hospital Course This is an 86-year-old female, who was brought to the hospital due to complaints of hematemesis. She stated that she had normal bowel movements, which were not black in color or had any blood. There were no abdominal complaints. The patient takes aspirin at home. She is also diabetic on metformin and glipizide. GI was consulted. On 10/18/2016, she underwent upper endoscopy with biopsy by Dr Sanford. Endoscopic findings showed evidence of shallow ulcer in the antrum of the stomach in the pre-pyloric region at about 9 o'clock position. There was one ulcer at lining of the stomach getting ulcerated, so basically one area of the ulcer with some ulcerative inflammation. No active bleeding at this time. No visible vessel. No adherent clot. Biopsy from antrum and body was obtained to rule out H. pylori infection. The rest of the exam was within normal limits. He was continued on PPI twice a day. Diet was eventually advanced. Potassium was repleted. She was eventually discharged home. FINAL DIAGNOSES: 1. Upper gastrointestinal bleed secondary to Gastric ulcer based on EGD 2. Hypertension. 3. Diabetes mellitus. 4. Hyperlipidemia. 5. Anemia. 6. Hypokalemia. I have been assigned to dictate a discharge summary on this account. I was not involved in the patient management. Discharge Discharge Disposition Patient was discharged to Home () Discharge Diagnoses: Roslyn Lima NP Oct 20, 2016 15:15
--- NOTE | 2016-10-22 10:30 | Diagnostic Imaging Report ---
Indication: Chest Pain Comparison: None A single view chest radiograph was obtained. Findings: No definite infiltrate or pulmonary vascular congestion identified. The heart is normal in size. The aorta is mildly enlarged consistent with atherosclerotic vascular disease. The bones are osteopenic. Impression: No acute disease
--- NOTE | 2016-10-30 23:24 | Physician Query ---
PLEASE COMPLETE QUESTION IN RED BEFORE SIGNING Dear Dr. ADDIE GODDARD Date: 10/30/16 Processing Rep/ CDS Name:EDY SWAN, JOHNNIE Exercise your independent professional judgment when responding to query. Questions asked do not imply particular answer is desired or expected. We greatly appreciate your clarification on this issue. Clinical Documentation States: Hospital Course -This is an 86-year-old female, who was brought to the hospital due to complaints of hematemesis.Endoscopic findings showed evidence of shallow ulcer in the antrum of the stomach There is no melena or hematochezia. Clinical Findings Show: Hb: 10/17/16 8.9, 10/18/16 8.4, 10/19/16 8.8; Hct 10/17/16 28.1, 10/18/16 25.5, 10/19/16 25.5 Describe any bleeding documented _ANTRUM__ Endoscopy results: shallow ulcer in the antrum of the stomach Please clarify the specific type of anemia below: Acuity: [ ]Acute [ ]Acute on Chronic [ ]Chronic Etiology: [] Blood loss [] ESRD [] Neoplastic disease [] Iron deficiency [] GI Bleed from [] Anemia of chronic disease, [] Unable to determine [] Other: Condition Present on Admission: [] Yes [] No [ ] Clinically Undeterminable Please also document in your Progress Notes and/or Discharge Summary and indicate if the condition was present on admission ADDIE GODDARD M.D. [facility]
--- NOTE | 2016-11-08 13:43 | Physician Query ---
PLEASE COMPLETE QUESTION IN RED BEFORE SIGNING Dear Dr. ADDIE GODDARD Date: 11/08/16 Half Section Ironer/ CDS Name:EDY SWAN, JOHNNIE Exercise your independent professional judgment when responding to query. Questions asked do not imply particular answer is desired or expected. We greatly appreciate your clarification on this issue. Clinical Documentation States: Hospital Course -This is an 86-year-old female, who was brought to the hospital due to complaints of hematemesis.Endoscopic findings showed evidence of shallow ulcer in the antrum of the stomach There is no melena or hematochezia. Clinical Findings Show: Hb: 10/17/16 8.9, 10/18/16 8.4, 10/19/16 8.8; Hct 10/17/16 28.1, 10/18/16 25.5, 10/19/16 25.5 Describe any bleeding documented _ANTRUM__ Endoscopy results: shallow ulcer in the antrum of the stomach Please clarify the specific type of anemia below: Acuity: [ ]Acute [ ]Acute on Chronic [ ]Chronic Etiology: [ x] Blood loss [ ] ESRD [ ] Neoplastic disease [ ] Iron deficiency [ ] GI Bleed from [ ] Anemia of chronic disease, [ ] Unable to determine [ ] Other: Condition Present on Admission: [x] Yes [] No [] Clinically Undeterminable Please also document in your Progress Notes and/or Discharge Summary and indicate if the condition was present on admission ADDIE GODDARD M.D. [facility]
--- NOTE | 2016-12-01 10:06 | Diagnostic Imaging Report ---
Indication: Pain, possible DIC Technique: Supine view of the abdomen Comparison: none Findings: The bowel gas pattern is unremarkable. No unusual masses or calcifications. There are mild degenerative bony changes Impression: No acute process This agrees with the preliminary interpretation provided overnight by Dr. Peoples
== END 2016-10-19 11:20 | disposition home or self-care (01) | DRG 379 ==
LOC: EDBD 09:37 → EMR 09:59 → 2W 10:07 → EDBEDREQ 12:06
PROC: 30233N1 Transfusion of Nonautologous Red Blood Cells into Peripheral Vein, Percutaneous Approach (ICD-10-PCS; 2016-10-17)
PROC: 0DJ08ZZ Inspection of Upper Intestinal Tract, Via Natural or Artificial Opening Endoscopic (ICD-10-PCS; principal; 2016-10-18 09:37)
DX: K25.4 Chronic or unspecified gastric ulcer with hemorrhage (principal); E11.65 Type 2 diabetes mellitus with hyperglycemia; E88.09 Other disorders of plasma-protein metabolism, not elsewhere classified; I10 Essential (primary) hypertension; E78.5 Hyperlipidemia, unspecified; E87.6 Hypokalemia; Z79.82 Long term (current) use of aspirin; D50.0 Iron deficiency anemia secondary to blood loss (chronic)
CPT/HCPCS: 36415; 71010; 74000; 80048; 80053; 81003; 82607; 82962; 83036; 83540; 83550; 83605; 83690; 83735; 84100; 84484; 85025; 85610; 85730; 86677; 86850; 86900; 86901; 86920; 93005; 94003; 94150; J1815; J2405

== ENCOUNTER 2016-12-06 20:56 | Observation (INO) | payer OTHER ==
[~2016-12-06] VITALS: Ht 121.9 cm; Wt 55.8 kg
[~2016-12-06 20:56] MED LIST: ASPIR 8181 MG ORAL; ATORVASTATIN CA40 MG ORAL; BENAZEPRIL HCL10 MG ORAL; GABAPENTIN100 MG ORAL; GLIPIZIDE5 MG ORAL; HYDROCHLOROTHIA25 MG ORAL; METFORMIN HCL1000 M1 ORAL; NORVASC10 MG ORAL; PROTONIX40 MG ORAL
[2016-12-06 21:37] VITALS: BP 173/83
[2016-12-06 21:57] LABS: BASOPHILS % (AUTO) 1.2 % (0.0-2.0); EOSINOPHILS % (AUTO) 1.4 % (0.0-3.0); MEAN CORPUSCULAR HEMOGLOBIN 30.5 PG (27.0-31.0); MEAN CORPUSCULAR HGB CONC 32.9 G/DL (32.0-36.0); MEAN CORPUSCULAR VOLUME 93 FL (80-99); MEAN PLATELET VOLUME 6.1 FL (6.5-10.1); MONOCYTES % (AUTO) 7.7 % (1.0-10.0); NEUTROPHILS % (AUTO) 66.7 % (45.0-75.0); PLATELET COUNT 230 K/UL (150-450); RED BLOOD COUNT 3.27 M/UL (4.20-5.40); RED CELL DISTRIBUTION WIDTH 13.1 % (11.6-14.8); WHITE BLOOD COUNT 6.7 K/UL (4.8-10.8)
[2016-12-06 21:58] LABS: TROPONIN I < 0.30 ng/mL (<=0.30)
[2016-12-06 22:01] LABS: ALANINE AMINOTRANSFERASE 11 U/L (3-33); ALBUMIN/GLOBULIN RATIO 1.4 (1.0-2.7); ANION GAP 16 (5-15); ASPARTATE AMINO TRANSFERASE 26 U/L (5-40); CALCIUM 9.5 mg/dL (8.6-10.2); CARBON DIOXIDE 28 mEQ/L (20-30); CHLORIDE 96 mEQ/L (98-107); HEMOLYSIS 62; POTASSIUM 4.6 mEQ/L (3.4-4.9); SODIUM 140 mEQ/L (135-145); TOTAL PROTEIN 6.9 g/dL (6.6-8.7)
[2016-12-06 22:12] LABS: CKMB 2.2 ng/mL (< 3.8)
--- NOTE | 2016-12-06 23:11 | Emergency Room Report ---
History of Present Illness General Chief Complaint: Chest Pain Source: Patient, EMS Present Illness HPI Patient is a 86-year-old female presented after increased difficulty with her breathing. Patient was brought in by EMS after increased chest pain. Patient had relief of pain after 2 sprays of nitroglycerin and was given aspirin by paramedics.Patient was noted to have chest pain which is described as a tightness sensation center chest. This did not radiate. Patient had onset during light activity. Allergies: Coded Allergies: No Known Allergies (Unverified , 10/17/16) Patient History Past Medical History: see triage record Now: No Reviewed Nursing Documentation: PMH: Agreed, PSxH: Agreed Nursing Documentation-PMH Past Medical History: No History, Except For Hx Cardiac Problems: Yes Hx Hypertension: Yes Hx Diabetes: Yes Hx Cancer: No Hx Gastrointestinal Problems: Yes Hx Neurological Problems: No Review of Systems All Other Systems: negative except mentioned in HPI Physical Exam Vital Signs Date Time Temp Pulse Resp B/P Pulse Ox O2 Delivery O2 Flow Rate FiO2 12/06/16 20:53 100 16 148/82 96 Room Air 12/06/16 21:37 98.1 General Appearance: alert, GCS 15, non-toxic, mild distress ENT: hearing grossly normal, normal pharynx Neck: normal inspection, full range of motion, supple Respiratory: chest non-tender, lungs clear, normal breath sounds, no rhonchi Cardiovascular #1: normal peripheral pulses, regular rate, rhythm, edema - trace Gastrointestinal: normal bowel sounds, non tender, soft Musculoskeletal: normal inspection, back normal, digits/nails normal Neurologic: normal inspection, alert, oriented x3, dictaphone transcriber III-XII nml as tested Skin: normal inspection, normal color Medical Decision Making Diagnostic Impression: Primary Impression: Anemia Additional Impressions: Chest pain HTN (hypertension) ER Course Patient presented for chest pain.Differential diagnosis included but was not limited to acute coronary syndrome, pulmonary embolism, pneumonia, aortic dissection, shingles, pneumothorax, aortic dissection, esophageal rupture, pericarditis. Because of complexity of patient's case laboratory testing and imaging studies were ordered.Patient was noted be chest pain-free at the time of ER visit. Patient was not given aspirin did recent upper GI bleed A chest x-ray one view interpreted by me showed no cardiac size without evident infiltrate. There is no evident effusion. No pneumothorax the EKG interpreted by me showed normal sinus rhythm with a rate of [address] or T wave changes.Laboratory testing showed mildly elevated be symmetric peptide. Initial troponin was negative. Dr. Roosevelt Calero was contacted for inpatient management Laboratory Tests Test 12/06/16 21:24 White Blood Count 6.7 K/UL (4.8-10.8) Red Blood Count 3.27 M/UL (4.20-5.40) L Hemoglobin 10.0 G/DL (12.0-16.0) L Hematocrit 30.3 % (37.0-47.0) L Mean Corpuscular Volume 93 FL (80-99) Mean Corpuscular Hemoglobin 30.5 PG (27.0-31.0) Mean Corpuscular Hemoglobin Concent 32.9 G/DL (32.0-36.0) Red Cell Distribution Width 13.1 % (11.6-14.8) Platelet Count 230 K/UL (150-450) Mean Platelet Volume 6.1 FL (6.5-10.1) L Neutrophils (%) (Auto) 66.7 % (45.0-75.0) Lymphocytes (%) (Auto) 23.0 % (20.0-45.0) Monocytes (%) (Auto) 7.7 % (1.0-10.0) Eosinophils (%) (Auto) 1.4 % (0.0-3.0) Basophils (%) (Auto) 1.2 % (0.0-2.0) Prothrombin Time 10.0 SEC (9.30-11.50) Prothrombin Time INR 1.0 (0.9-1.1) PTT 23 SEC (23-33) D-Dimer 1373 ng/mL (<500) H Sodium Level 140 mEQ/L (135-145) Potassium Level 4.6 mEQ/L (3.4-4.9) Chloride Level 96 mEQ/L (98-107) L Carbon Dioxide Level 28 mEQ/L (20-30) Anion Gap 16 (5-15) H Blood Urea Nitrogen 18 mg/dL (7-23) Creatinine 1.0 mg/dL (0.5-0.9) H Estimate Glomerular Filtration Rate mL/min (>60) Glucose Level 122 mg/dL (74-106) H Calcium Level 9.5 mg/dL (8.6-10.2) Total Bilirubin 0.4 mg/dL (0.0-1.2) Aspartate Amino Transferase (AST) 26 U/L (5-40) Alanine Aminotransferase (ALT) 11 U/L (3-33) Alkaline Phosphatase 56 U/L (35-104) Total Creatine Kinase 76 U/L (26-140) Creatine Kinase MB 2.2 ng/mL (< 3.8) Creatine Kinase MB Relative Index 2.8 Troponin I < 0.30 ng/mL (<=0.30) Pro-B-Type Natriuretic Peptide 255 pg/mL (0-450) Total Protein 6.9 g/dL (6.6-8.7) Albumin 4.1 g/dL (3.5-5.2) Globulin 2.8 g/dL Albumin/Globulin Ratio 1.4 (1.0-2.7) EKG Diagnostic Results Rate: normal - 90 Rhythm: NSR ST Segments: no acute changes Rhythm Strip Diag. Results EP Interpretation: yes Rhythm: NSR, no PVC's, no ectopy Chest X-Ray Diagnostic Results EP Interpretation: Yes Findings: no consolidation, no effusion, no pneumothorax Number of Views: 1 Last Vital Signs Date Time Temp Pulse Resp B/P Pulse Ox O2 Delivery O2 Flow Rate FiO2 12/06/16 21:39 89 18 Room Air 12/06/16 21:37 98.1 173/83 97 Status: unchanged Disposition: PLACE IN OBSERVATION Condition: Serious Referrals: [facility],REFERRING (PCP) Jagdeep Clark Dec 06, 2016 23:11
[2016-12-06 23:37] VITALS: BP 154/73
[2016-12-07 00:37] VITALS: BP 152/73
[2016-12-07 00:45] VITALS: BP 166/76
[2016-12-07 01:00] VITALS: BP 158/76
[2016-12-07 04:00] VITALS: BP 136/70
[2016-12-07] MEDS: NovoLOG Insulin Flexpen SUBQ SCH ×2 (06:12→11:29)
[2016-12-07] MEDS ORDERED: GlipiZIDE 5mg tab ORAL SCH (06:30)
[2016-12-07 08:17] VITALS: BP 138/74
[2016-12-07] MEDS ORDERED: metFORMIN 500mg tab ORAL SCH (09:00)
[2016-12-07] MEDS ORDERED: Benazepril 10mg tab ORAL SCH (09:00)
--- NOTE | 2016-12-07 09:11 | Pulmonology Progress Note ---
Assessment/Plan Assessment/Plan H&P dictated Further history obtained from daughter Patient never had chest pain; was only concerned due to high BP noted after exertion Will order second troponin stat Dc home if negative Subjective Interval Events: No CP; no SOB Constitutional: Reports: no symptoms HEENT: Repors: no symptoms Respiratory: Reports: no symptoms Allergies: Coded Allergies: No Known Allergies (Unverified , 10/17/16) Objective Last 24 Hour Vital Signs Date Time Temp Pulse Resp B/P Pulse Ox O2 Delivery O2 Flow Rate FiO2 12/07/16 08:17 97.7 68 18 138/74 98 Room Air 12/07/16 08:12 138/74 12/07/16 04:00 97.2 77 19 136/70 93 Room Air 12/07/16 04:00 71 12/07/16 01:00 97.2 78 18 158/76 96 Room Air 98.0 12/07/16 00:45 97.2 71 20 166/76 96 Room Air 12/07/16 00:40 76 18 152/73 100 Room Air 12/07/16 00:37 98.0 76 17 152/73 100 Room Air 12/06/16 23:37 98.0 74 16 154/73 100 Room Air 12/06/16 21:39 89 18 Room Air 12/06/16 21:37 98.1 89 18 173/83 97 Room Air 12/06/16 20:53 100 16 148/82 96 Room Air Intake and Output 12/06/16 12/07/16 19:00 07:00 Output Total 200 ml Balance -200 ml Output Urine Total 200 ml # Voids 4 General Appearance: no acute distress HEENT: normocephalic Respiratory/Chest: chest wall non-tender, lungs clear Cardiovascular: normal peripheral pulses, normal rate Laboratory Tests 12/06/16 21:24: White Blood Count 6.7, Red Blood Count 3.27L, Hemoglobin 10.0L, Hematocrit 30.3L , Mean Corpuscular Volume 93, Mean Corpuscular Hemoglobin 30.5, Mean Corpuscular Hemoglobin Concent 32.9, Red Cell Distribution Width 13.1, Platelet Count 230, Mean Platelet Volume 6.1L, Neutrophils (%) (Auto) 66.7, Lymphocytes ( %) (Auto) 23.0, Monocytes (%) (Auto) 7.7, Eosinophils (%) (Auto) 1.4, Basophils (%) (Auto) 1.2, Prothrombin Time 10.0, Prothromb Time International Ratio 1.0, Activated Partial Thromboplast Time 23, D-Dimer 1373H, Sodium Level 140, Potassium Level 4.6, Chloride Level 96L, Carbon Dioxide Level 28, Anion Gap 16H , Blood Urea Nitrogen 18, Creatinine 1.0H, Estimat Glomerular Filtration Rate , Glucose Level 122H, Calcium Level 9.5, Total Bilirubin 0.4, Aspartate Amino Transf (AST/SGOT) 26, Alanine Aminotransferase (ALT/SGPT) 11, Alkaline Phosphatase 56, Total Creatine Kinase 76, Creatine Kinase MB 2.2, Creatine Kinase MB Relative Index 2.8, Troponin I < 0.30, Pro-B-Type Natriuretic Peptide 255, Total Protein 6.9, Albumin 4.1, Globulin 2.8, Albumin/Globulin Ratio 1.4 Current Medications Medications (Trade) Dose Ordered Sig/Nadine Route PRN Reason Start Time Stop Time Status Last Admin Dose Admin Atorvastatin Calcium (Lipitor) 40 mg BEDTIME ORAL 12/07/16 21:00 01/06/17 20:59 Benazepril HCl (Lotensin) 10 mg DAILY ORAL 12/07/16 09:00 01/06/17 08:59 12/07/16 08:12 Dextrose (Dextrose 50%) STAT PRN IV Hypoglycemia 12/07/16 02:00 01/06/17 01:59 Glipizide (Glucotrol) 5 mg BID@0630,1630 ORAL 12/07/16 06:30 01/06/17 06:29 12/07/16 06:23 Hydrochlorothiazide (Hydrodiuril) 25 mg DAILY ORAL 12/07/16 09:00 01/06/17 08:59 12/07/16 08:12 Insulin Aspart (NovoLOG) BEFORE MEALS AND HS SUBQ 12/07/16 06:30 01/06/17 06:29 Metformin HCl (Glucophage) 1,000 mg BID ORAL 12/07/16 09:00 01/06/17 08:59 UNV Pantoprazole (Protonix) 40 mg DAILY ORAL 12/07/16 09:00 01/06/17 08:59 12/07/16 08:12 Roosevelt Calero MD Dec 07, 2016 09:11
[2016-12-07 10:46] LABS: TROPONIN I < 0.30 ng/mL (<=0.30)
--- NOTE | 2016-12-07 10:58 | History and Physical Report ---
DATE OF ADMISSION: 12/06/2016 HISTORY OF PRESENT ILLNESS: This is an 86-year-old female, who came to the hospital with shortness of breath. She also had chest pain. She received nitroglycerin and felt better. She also received aspirin. The patient reported that she had chest pain. The patient at this time denies any other medical issues. PAST SURGICAL HISTORY: Surgeries none reported. MEDICATIONS: Her list of home medications include Lipitor, Glucophage, benazepril, Protonix, hydrochlorothiazide, and glipizide. ALLERGIES: None reported. REVIEW OF SYSTEMS: Denies any headaches, hematemesis, melena, or hematochezia. PHYSICAL EXAMINATION: GENERAL: Reveals an 86-year-old female. VITAL SIGNS: Blood pressure 130/80, heart 72, respirations 16, and she is afebrile. HEENT: Unremarkable. RESPIRATORY: Clear breath sounds bilaterally. ABDOMEN: Soft. EXTREMITIES: There is no edema. NEUROLOGIC: Nonfocal. LABORATORY DATA: Blood testing showed normal CBC and BMP. Troponin x1 is negative. Coags are negative. IMAGING STUDIES: X-ray of chest obtained earlier this month is negative. IMPRESSION: 1. Recent upper gastrointestinal bleed. 2. History of gastric ulcer. 3. Hypertension. 4. Diabetes mellitus. 5. Hyperlipidemia. 6. Anemia. 7. Chest pain. DISCUSSION: The patient is at risk of cardiac pathology due to her age, diabetes and her chest pain. We will check serial troponins. We will recommend a cardiac evaluation. We will follow carefully. Consider stress testing. We will defer to Cardiology treatment. Roosevelt Calero M.D. DR: Kairna JOB#: [id number] CC:
[2016-12-07 11:54] VITALS: BP 151/80
--- NOTE | 2016-12-07 13:52 | Diagnostic Imaging Report ---
Indication: SOB Technique: One view of the chest Comparison: 10/17/2016 Findings: There is some atelectasis at the left lung base. Lungs and pleural spaces are otherwise clear. Normal heart size. Impression: Left basilar atelectasis. No acute process otherwise This agrees with the preliminary interpretation provided by the emergency room physician
--- NOTE | 2016-12-09 03:08 | Cardiology Report ---
APPROVED REPORT EKG Measurement Heart [id number] Normal sinus rhythm Cannot rule out Anteroseptal infarct, age undetermined Abnormal ECG
== END 2016-12-07 12:07 | disposition home or self-care (01) ==
LOC: EDBD 20:56 → EMR 21:27 → 2E 22:25 → EDBEDREQ 23:41
DX: R07.9 Chest pain, unspecified (principal); R06.02 Shortness of breath; D64.9 Anemia, unspecified; I10 Essential (primary) hypertension; E11.9 Type 2 diabetes mellitus without complications; Z79.4 Long term (current) use of insulin; Z79.84 Long term (current) use of oral hypoglycemic drugs; E78.5 Hyperlipidemia, unspecified; Z87.11 Personal history of peptic ulcer disease
CPT/HCPCS: 36415; 71010; 80053; 82550; 82553; 82962; 83880; 84484 ×2; 85025; 85379; 85610; 85730; 87040; 87181 ×2; 93005; 99285; G0378 ×2; J1815